=== PATIENT | female | born 1980 | race Caucasian/White ===

== ENCOUNTER 2017-10-25 09:37 | Emergency (ER) | payer OTHER ==
[~2017-10-25] VITALS: Ht 160 cm; Wt 72.6 kg
--- NOTE | 2017-10-25 10:12 | ED GI/GU/ABDOMINAL COMPLAINT ---
History of Present Illness General Chief Complaint: Abdominal Pain/Flank Pain Stated Complaint: rt sided abd pain Source: patient Exam Limitations: no limitations Vital Signs & Intake/Output Vital Signs & Intake/Output Vital Signs Date Time Temp Pulse Resp B/P B/P Pulse O2 O2 Flow FiO2 Mean Ox Delivery Rate 10/25 1225 80 20 154/86 98 10/25 0940 98.5 88 16 168/77 96 Room Air Allergies Coded Allergies: NO KNOWN ALLERGIES (07/24/12) Reconcile Medications Buspirone HCl 5 MG TABLET 1 TAB PO BID MENTAL HEALTH (Reported) Hyoscyamine Sulfate (Levsin-Sl) 0.125 MG TAB.SUBL 1-2 TAB SL Q4P PRN ABDOMINAL SPASMS Methocarbamol 500 MG TABLET 1 TAB PO TID MUSCLE RELAXANT (Reported) Sertraline HCl 100 MG TABLET 1 TAB PO DAILY MENTAL HEALTH (Reported) Triage Note: 37 Y/O FEMALE C/O RUQ/RLQ PAIN X 3 WEEKS (INTERMITTENT). STATES SHE DOESN'T RECALL AND INJURY OR TRAUMA. DENIES N/V/D. DENIES URINARY SYMPTOMS. DENIES CHANGES IN APPETITE. DENIES FEVERS. REPORTS "NORMAL" MENSTRUAL CYCLES. AFEBRILE URINE SAMPLE REQUESTED Triage Nurses Notes Reviewed? yes ? N Is pt currently ? No Onset: Gradual Duration: week(s): (3) Timing: no prior history Quality/Severity: dullness, sharpness Severity Numbers: 6 Location: epigastric, right upper quadrant Radiation: no radiation Activities at Onset: none Prior Abdominal Problems: none Past Sexual History: Unobtainable at this time Modifying Factors: Worsens With: movement, palpation. HPI: Patient is a 37-year-old female presenting to the emergency department she complained of right upper quadrant pain and epigastric pain that began 3 weeks ago, pain has been intermittent. Pain comes and goes. Denies any associated nausea or vomiting fevers or chills chest pain or shortness of breath. Denies taking anything at home to help with her symptoms. Movement makes it worse. Denies any urinary frequency urgency or dysuria. Not associated with eating. Was seen in a walk-in clinic yesterday, they told her that it may be a muscular issue and started her on Robaxin, patient has had little relief. No sick contacts or recent travel. She denies recent antibiotic use. She was getting set up with for an outpatient ultrasound but could not get in for 2 weeks at that she came to the emergency department today. (Allison Gifford) Past History Travel History Traveled to [place] past 21 day No Medical History Any Pertinent Medical History? see below for history Neurological: NONE EENT: NONE Cardiovascular: NONE Respiratory: NONE Gastrointestinal: NONE Hepatic: NONE Renal: NONE Musculoskeletal: NONE Psychiatric: NONE Endocrine: NONE Blood Disorders: NONE Cancer(s): NONE DIRECTOR AUDIENCE MARKETING/Reproductive: NONE Surgical History Surgical History: non-contributory Psychosocial History What is your primary language Icelandic Tobacco Use: Current Daily Use Daily Tobacco Use Amount/Type: => 5 Cigarettes daily Family History Hx Contributory? No (Allison Gifford) Review of Systems Review of Systems Constitutional: Reports: no symptoms. Comments Review of systems: See HPI, All other systems negative. Constitutional, no chills fever or weight loss HEENT: No visual changes no sore throat no congestion Cardiovascular: No chest pain ,palpitation , orthopnea or ankle swelling Skin, no jaundice no rashes Respiratory: No dyspnea cough sputum or hemoptysis GI: No nausea no vomiting : No dysuria No hematuria Muscle skeletal: no back pain, no neck pain, Neurologic: No numbness no confusion Psych: No stress anxiety or depression,. Heme/endocrine: No bruising no bleeding no polyuria or polydipsia Immunology: No splenectomy or history of AIDS (Allison Gifford) Physical Exam Physical Exam General Appearance: well developed/nourished, no apparent distress, alert, awake , comfortable Gastrointestinal: normal bowel sounds, soft, tenderness Comments: Well-developed well-nourished person in no acute distress HEENT: Nose is atraumatic. External auditory canal and Tympanic membranes clear. Pharynx normal. No swelling or edema. Neck: NORMAL INSPECTION Back: Nontender, no CVA tenderness. Cardiovascular: Regular rate and rhythms no murmurs rubs or gallops Respiratory: Chest nontender. No respiratory distress.breath sounds clear to auscultation bilaterally Abdomen: Soft, TENDER TO PALPATION IN RUQ AND EPIGASTRIC AREA, nondistended, no appreciable organomegaly. Normal bowel sounds. No ascites Extremity: No edema Neuro: Alert oriented x3 Skin: No appreciable rash on exposed skin, skin is warm and dry. Psych: Mood and affect is normal, memory and judgment is normal. Core Measures ACS in differential dx? No Sepsis Present: No Sepsis Focused Exam Completed? No (Donnie SCHRADER,Allison) Progress Differential Diagnosis: appendicitis, cholecystitis, gastritis, pancreatitis, UTI/pyelo Plan of Care: Orders Procedure Date/time Status Add-on Test (ER Only) 10/25 1027 Active LIPASE 10/25 1016 Complete ETHANOL 10/25 1016 Complete COMPREHENSIVE METABOLIC PANEL 10/25 1016 Complete CBC WITHOUT DIFFERENTIAL 10/25 1016 Complete URINE DRUGS OF ABUSE 10/25 1010 Complete URINE 10/25 1010 Complete URINALYSIS 10/25 1010 Complete Laboratory Tests 10/25/17 1130: Anion Gap 12, Estimated GFR > 60, BUN/Creatinine Ratio 17.1, Glucose 83, Calcium 9.4, Total Bilirubin 0.5, AST 22, ALT 37, Alkaline Phosphatase 48, Total Protein 6.8, Albumin 4.2, Globulin 2.6, Albumin/Globulin Ratio 1.6, Lipase 78, CBC w Diff NO MAN DIFF REQ, RBC 5.01, MCV 87.1, MCH 29.4, RDW 14.0, MPV 9.0, Gran % 55.5, Lymphocytes % 33.1, Monocytes % 7.7, Eosinophils % 3.3, Basophils % 0.4, Absolute Granulocytes 4.3, Absolute Lymphocytes 2.6, Absolute Monocytes 0.6, Absolute Eosinophils 0.3, Absolute Basophils 0, PUBS MCHC 33.7, Serum Alcohol < 10.0 10/25/17 1011: Urinalysis LIGHT H, Urine Color YEL, Urine Clarity HAZY H, Urine pH 6.0, Ur Specific Grayling >= 1.030, Urine Protein NEG, Urine Ketones TRACE H, Urine Nitrite NEG, Urine Bilirubin NEG, Urine Urobilinogen 0.2, Ur Leukocyte Esterase TRACE H, Ur Microscopic SEDIMENT EXAMINED, Urine RBC 1-3, Urine WBC 3-5 H, Ur Epithelial Cells MANY H, Urine Bacteria MOD H, Urine Mucus MOD H, Urine Hemoglobin NEG, Urine Glucose NEG, Urine Test NEGATIVE 10/25/17 1010: Urine Opiates Screen < 100.00, Methadone Screen < 40, Barbiturate Screen < 60, Ur Phencyclidine Scrn < 6.00, Amphetamines Screen 296, U Benzodiazepines Scrn 142, Urine Cocaine Screen < 50, Urine Cannabis Screen < 5.00 10/25/2017 12:12:06 PM patient declined pain medication on arrival. She was informed of all lab work results and imaging study results. No signs of acute infection. Cannot exclude gallbladder dysfunction. Patient will follow-up with Dr. mayergia symptoms persist. Started on Levsin. She may need HIDA scan. Patient nontoxic. No right lower quadrant pain to palpation. Patient is afebrile and no elevation in white blood cell count and symptoms have been going on for 3 weeks. Unlikely appendicitis. Diagnostic Imaging: Viewed by Me: Ultrasound. Discussed w/RAD: Ultrasound. Radiology Impression: ATIENT: KARRI EWING PRESENT AGE: 37 PATIENT ACCOUNT NO: [id number] : 79 LOCATION: [facility] ORDERING PHYSICIAN: Allison SCHRADER SERVICE DATE: 10/25/17 EXAM TYPE: US - US-LIMITED ABDOMEN EXAMINATION: US ABDOMEN LIMITED CLINICAL INFORMATION: Right upper quadrant pain; question gallstones.. COMPARISON: None. TECHNIQUE: Real- time imaging of the right upper quadrant abdominal viscera. FINDINGS: PANCREAS: Normal. LIVER: Normal. The liver demonstrates normal size, contour and echogenicity. No focal lesion or intrahepatic biliary duct dilatation. GALLBLADDER: Normal. The gallbladder is physiologically distended without evidence of stones, sludge, polyps, wall thickening or pericholecystic fluid. COMMON BILE DUCT: Normal in caliber measuring 0.3 cm in diameter. RIGHT KIDNEY: Normal. No hydronephrosis. No renal calculi or focal parenchymal lesions. The kidney measures 10.8 cm in maximum dimension. FREE FLUID: None. IMPRESSION: Unremarkable examination. DICTATED BY: Elliott Coronel MD DATE/TIME DICTATED:10/25 RESOURCE ROOM TEACHER:PAULY DATE/TIME TRANSCRIBED:10/25/171107 CONFIDENTIAL, DO NOT COPY WITHOUT APPROPRIATE AUTHORIZATION. <Electronically signed in Other Vendor System> SIGNED BY: Elliott Coronel MD 10/25/17 1113 Initial ED EKG: none (Donnie SCHRADER,Allison) Departure Departure Time of Disposition: 1208 Disposition: HOME OR SELF CARE Condition: Stable Clinical Impression Primary Impression: Abdominal pain Qualifiers: Abdominal location: right upper quadrant Qualified Code: R10.11 - Right upper quadrant pain Secondary Impressions: Elevated blood pressure reading without diagnosis of hypertension Referrals: Patient Has No Primary Care Dr (PCP/Family) Debra NARAYANAN,Ryland Cerrato Additional Instructions: Follow-up with gastroenterology call to make an appointment for the next 5-7 days. Return to the emergency department if he develop any worsening symptoms, fevers, unable to keep anything down or concerns. Take Levsin help with abdominal discomfort. Departure Forms: Customer Survey General Discharge Information Prescriptions: Current Visit Scripts Hyoscyamine Sulfate (Levsin-Sl) 1-2 TAB SL Q4P PRN ABDOMINAL SPASMS #20 TAB (Allison Gifford) PA/LANDSCAPING CREW LEADER Co-Sign Statement Statement: ED Attending supervision documentation- [] I saw and evaluated the patient. I have also reviewed all the pertinent lab results and diagnostic results. I agree with the findings and the plan of care as documented in the PA's/LANDSCAPING CREW LEADER's documentation. [X] I have reviewed the ED Record and agree with the PA's/LANDSCAPING CREW LEADER's documentation. [] Additions or exceptions (if any) to the PAs/LANDSCAPING CREW LEADER's note and plan are summarized below: [] (Clayton Delatorre DO)
[2017-10-25] MEDS ORDERED: SERTRALINE HCL100 MG PO (11:02)
[2017-10-25] MEDS ORDERED: BUSPIRONE HCL5 M1 PO (11:02)
[2017-10-25] MEDS ORDERED: METHOCARBAMOL500 M1 PO (11:02)
--- NOTE | 2017-10-25 11:13 | ULTRASOUND REPORT ---
EXAMINATION: US ABDOMEN LIMITED CLINICAL INFORMATION: Right upper quadrant pain; question gallstones.. COMPARISON: None. TECHNIQUE: Real-time imaging of the right upper quadrant abdominal viscera. FINDINGS: PANCREAS: Normal. LIVER: Normal. The liver demonstrates normal size, contour and echogenicity. No focal lesion or intrahepatic biliary duct dilatation. GALLBLADDER: Normal. The gallbladder is physiologically distended without evidence of stones, sludge, polyps, wall thickening or pericholecystic fluid. COMMON BILE DUCT: Normal in caliber measuring 0.3 cm in diameter. RIGHT KIDNEY: Normal. No hydronephrosis. No renal calculi or focal parenchymal lesions. The kidney measures 10.8 cm in maximum dimension. FREE FLUID: None. IMPRESSION: Unremarkable examination.
[2017-10-25 11:37] LABS: ABSOLUTE BASOPHIL COUNT 0 /CUMM (0.0-0.2); ABSOLUTE EOSINOPHIL COUNT 0.3 /CUMM (0.0-0.7); ABSOLUTE GRANULOCYTE CT 4.3 /CUMM (1.4-6.5); ABSOLUTE LYMPH COUNT 2.6 /CUMM (1.2-3.4); ABSOLUTE MONOCYTE COUNT 0.6 /CUMM (0.10-0.60); BASOPHIL % 0.4 % (0.0-2.0); EOSINOPHIL % 3.3 % (0-5); GRANULOCYTE % 55.5 % (42.2-75.2); HEMATOCRIT 43.6 % (37-47); MEAN CORPUSCULAR HGB 29.4 PG (27.0-31.0); MEAN CORPUSCULAR HGB CONC 33.7 G/DL (33.0-37.0); MEAN CORPUSCULAR VOLUME 87.1 FL (81.0-99.0); PLATELET COUNT 223 /CUMM (130-400); RED BLOOD CELL CT 5.01 /CUMM (4.20-5.40); WHITE BLOOD CELL COUNT 7.8 /CUMM (4.8-10.8)
[2017-10-25] MEDS ORDERED: LEVSIN-SL0.125 MG SL (12:10)
[2017-10-25 12:25] VITALS: BP 154/86
--- NOTE | 2017-10-30 13:12 | OP PSYCH INCIDENTAL NOTE ---
OPS Incidental Note Details: Patient was a no show/no call for today's scheduled assessment.
== END 2017-10-25 12:26 ==
LOC: ERH 09:37
PROVIDERS: Physician Assistant
DX: R10.11 Right upper quadrant pain (principal); R10.13 Epigastric pain; R03.0 Elevated blood-pressure reading, without diagnosis of hypertension
CPT/HCPCS: 80307; 81001; 81025; G0480

== ENCOUNTER 2018-06-26 19:42 | Emergency (ER) | payer OTHER ==
[~2018-06-26] VITALS: Ht 160 cm; Wt 76.2 kg
[~2018-06-26 19:42] MED LIST: BUSPIRONE HCL5 M1 PO; HYDROXYZINE HCL50 M1 PO; KEFLEX500 M1 PO; KETOROLAC TROME10 M1 PO; LEVSIN-SL0.125 MG SL; LIDODERM1 EACH TOP; MEDROL4 M2 PO; METHOCARBAMOL500 M1 PO; NAPROSYN500 M1 PO; SERTRALINE HCL100 MG PO; TYLENOL WITH C1 EACH PO
--- NOTE | 2018-06-26 22:35 | ED PSYCHIATRIC COMPLAINT ---
History of Present Illness General Chief Complaint: General Adult Stated Complaint: "HAVING A REALLY BAD PANIC ATTACK" PER PT Source: patient, family, old records Exam Limitations: no limitations Vital Signs & Intake/Output Vital Signs & Intake/Output Vital Signs Date Time Temp Pulse Resp B/P B/P Pulse O2 O2 Flow FiO2 Mean Ox Delivery Rate 06/26 2246 88 165/78 06/26 2222 98.0 97 18 174/76 97 Room Air 06/26 2038 99.2 106 18 167/103 95 Room Air ED Intake and Output 06/27 0000 06/26 1200 Intake Total Output Total Balance Patient 168 lb Weight Weight Estimated Measurement Method Allergies Coded Allergies: NO KNOWN ALLERGIES (07/24/12) Reconcile Medications Buspirone HCl 5 MG TABLET 1 TAB PO BID MENTAL HEALTH (Reported) Cephalexin (Keflex) 500 MG CAPSULE 1 CAP PO TID UTI Hydroxyzine Hydrochloride (Atarax) 50 MG TAB 1 TAB PO TID PRN ITCHING Hydroxyzine Hydrochloride (Atarax) 25 MG TAB 1-2 TAB PO Q6H PRN anxiety Hyoscyamine Sulfate (Levsin-Sl) 0.125 MG TAB.SUBL 1-2 TAB SL Q4P PRN ABDOMINAL SPASMS Ketorolac Tromethamine 10 MG TABLET 1 TAB PO TID PRN PAIN RECEIVED IM IN ER Lidocaine (Lidoderm) 5 % ADH..PATCH 1 PAT TOP DAILY PRN pain may wear up to 12 hours Methocarbamol 500 MG TABLET 1 TAB PO TID MUSCLE RELAXANT (Reported) Methylprednisolone. (Medrol) 4 MG TAB.DS.PK 1 DP PO AD RASH 6 on day 1 then reduce by one tablet daily until gone Naproxen (Naprosyn) 500 MG TABLET 1 TAB PO BID PRN pain Sertraline HCl 100 MG TABLET 1 TAB PO DAILY MENTAL HEALTH (Reported) Tylenol With Codeine (Tylenol With Codeine #3 Tablet) 300 MG-30 MG TABLET 1 TAB PO BIDP PRN PAIN Triage Note: RECEIVED 38 YO FEMALE WITH HX OF ANXIEETY, C/O WORSENING ANXIETY RECENTLY AND FULL BLOWN PANIC ATTACKS THE LAST 2 DAYS. PT HAS NOT TAKEN ANY MEDS IN THE LAST 4-5 MONTHS. PT WAS BEING SEEN AT [facility]. NOT SLEEPING WELL. Triage Nurses Notes Reviewed? yes Onset: 1 month Duration: week(s):, continues in ED, getting worse Timing: recent history Severity: moderate, severe Associated Symptoms: anxiety, impaired concentration, insomnia LMP (ages 10-50): unknown : No Patient currently breastfeeds: No HPI: 1 month prior to admission patient complains of increasing anxiety. She reports seeing someone with a heroin overdose. Since this time anxiety has been progressive. One day prior to admission she complains of being unable to concentrate feeling shaky palpitations nausea insomnia. She denies fever chills vomiting diarrhea abdominal pain cough shortness of breath headache dysuria rash bleeding suicidal ideation homicidal ideation hallucination. Past History Travel History Traveled to [place] past 21 day No Medical History Any Pertinent Medical History? see below for history Neurological: NONE EENT: NONE Cardiovascular: NONE Respiratory: NONE Gastrointestinal: NONE Hepatic: NONE Renal: NONE Musculoskeletal: NONE Psychiatric: NONE Endocrine: NONE Blood Disorders: NONE Cancer(s): NONE SLABBER/Reproductive: NONE Surgical History Surgical History: non-contributory Psychosocial History What is your primary language Armenian Tobacco Use: Current Daily Use Daily Tobacco Use Amount/Type: => 5 Cigarettes daily Illicit Drug Use: cocaine, heroin Family History Hx Contributory? No Review of Systems Review of Systems Constitutional: Reports: no symptoms. EENTM: Reports: no symptoms. Respiratory: Reports: no symptoms. Cardiovascular: Reports: see HPI, chest pain, palpitations. GI: Reports: see HPI, nausea. Genitourinary: Reports: no symptoms. Musculoskeletal: Reports: no symptoms. Skin: Reports: no symptoms. Neurological/Psychological: Reports: see HPI, anxiety, confusion. Hematologic/Endocrine: Reports: no symptoms. Immunologic/Allergic: Reports: no symptoms. All Other Systems: Reviewed and Negative Physical Exam Physical Exam General Appearance: well developed/nourished, alert, awake, anxious, moderate distress, obese Head: atraumatic, normal appearance Eyes: Bilateral: normal appearance, PERRL, EOMI. Ears, Nose, Throat: normal pharynx, normal ENT inspection, hearing grossly normal Neck: normal inspection, supple, full range of motion, no midline tenderness Respiratory: normal breath sounds, chest non-tender, no respiratory distress, quiet respiration, lungs clear Cardiovascular: regular rate/rhythm, normal peripheral pulses, norml femoral pulses equa Gastrointestinal: normal bowel sounds, soft, non-tender, no organomegaly Extremities: normal range of motion, no ligament instability Neurological/Psychiatric: no motor/sensory deficits, awake, agitated, alert, anxious, manager education II-XII nml as tested, oriented x 3 Appearance/Memory/Insight: disheveled, impaired insight Behavoir/Eye Contact/Speech: cooperative, normal speech Thoughts/Hallucinations: no apparent hallucination Skin: intact, normal color, warm/dry SAD PERSONS Done? patient not suicidal Progress Differential Diagnosis: drug intoxication, drug withdrawal, electrolyte abnormality Plan of Care: Current Medications Sig/Suhail Start time Last Medication Dose Stop Time Status Admin Lorazepam 1 MG ONE ONE 06/26 2245 AC (Ativan) 06/26 2246 Departure Departure Time of Disposition: 2234 Disposition: HOME OR SELF CARE Condition: Stable Clinical Impression Primary Impression: Generalized anxiety disorder with panic attacks Referrals: Patient Has No Primary Care Dr (PCP/Family) Departure Forms: Customer Survey General Discharge Information Prescriptions: Current Visit Scripts Hydroxyzine Hydrochloride (Atarax) 1-2 TAB PO Q6H PRN anxiety #60 TAB
[2018-06-26] MEDS ORDERED: HYDROXYZINE HCL25 M2 PO (22:36)
[2018-06-26 22:46] VITALS: BP 165/78
== END 2018-06-26 22:47 ==
LOC: ERH 19:42
DX: F41.1 Generalized anxiety disorder (principal); F41.0 Panic disorder [episodic paroxysmal anxiety]